=== PATIENT | male | born 1960 | race Hispanic/Latino ===

== ENCOUNTER 2017-04-26 07:00 | Day surgery (SDC) | payer BC ==
[~2017-04-26] VITALS: Ht 172.7 cm; Wt 90.3 kg
[~2017-04-26 07:00] MED LIST: ALLOPURINOL100 MG PO; ATENOLOL50 MG PO; CHLORTHALIDONE25 MG PO; CIALIS20 MG PO; COLCRYS0.6 MG PO; CRESTOR20 MG PO; MARTEN-TAB 3251 EACH PO; MELOXICAM15 MG PO; METFORMIN HCL500 MG PO; PROVENTIL HFA6.7 GM; TAMIFLU75 MG PO; TRILIPIX135 MG PO; VITAMIN D5000 UNIT PO; ZOLPIDEM TARTRA10 MG PO; ZOLPIDEM TARTRAT5 MG PO
--- NOTE | 2017-04-26 10:48 | NUR ---
04/26/17 1048 Tasha Collins REPORT FROM STAFF TECHNOLOGIST.
[2017-04-26] MEDS ORDERED: OXYCODON-ACETA1 EAC2 PO (11:01)
--- NOTE | 2017-04-26 11:34 | NUR ---
1120 - PT RETURNED FROM PACU. MAINTINAING OWN AIRWAY AND O2 STATS ABOVE 96% ON 2L NC. PHIL DRAIN DRAINING MINIMAL AMOUNT OF RED FLUID. PT COMPLAINTS OF 2/10 PAIN AND WOULD LIEK TO TAKE A PAIN PILL, ANIL PROVIDED. SEE MAR FOR MEDICATON GIVEN. FAMILY AT BEDSIDE. BEDRAILS UP, CALL LIGHT WITHIN REACH.
--- NOTE | 2017-04-26 11:41 | NUR ---
1140 - PT TOLERATING PO JELLO AND FLUIDS. PAIN MEDICATION GIVEN (SEE MAR). FAMILY AT BEDSIDE. HAND OFF REPORT GIVEN TO LINUS OCHOA.
--- NOTE | 2017-04-26 11:45 | NUR ---
1140 - room air trial attempted. pt on room air with this rn at bedside. pt drops to 90% when resting. 2L nc restarted. pulse ox left on. bed rails up, call light with in reach
--- NOTE | 2017-04-26 12:41 | NUR ---
DRAIN CARE EDUCATION DONE WITH PT AND . DEMONSTRATION DONE WITH HOW TO EMPTY PHIL DRAIN AND RECORD AMOUNTS. BOTH PT AND ASKED QUESTIONS AND VERBALIZED UNDERSTANDING.
--- NOTE | 2017-04-26 14:28 | NUR ---
PT RESTING IN BED, ALERT AND ORIENTED. SUPPORTED BY HIS . BOTH FRIENDLY, HAD QUESTIONS ABOUT MESH, ENCURAGED THEM TO ASK DR OR NURSE WHEN THEY WERE IN NEXT. PT REQUESTED PRAYER, GOOD VISIT. WILL FOLLOW NEEDED
--- NOTE | 2017-04-30 10:32 | OR ---
[facility] [address] [place], [place] [address] Signed DATE OF SERVICE: 04/26/2017 PREOPERATIVE DIAGNOSIS: Large right inguinal hernia (incarcerated). POSTOPERATIVE DIAGNOSES: Incarcerated right indirect inguinal hernia with incarcerated omentum. Separate scrotal (testicular) hydrocele. PROCEDURES: Right groin exploration with partial omentectomy. Repair of right inguinal hernia with implantation of Prolene mesh and high ligation and excision of right indirect sac. Scrotal hydrocelectomy with closure and bottle type configuration. SURGEON: Larry Monroy M.D. ANESTHESIA: General LMA (Larry Yanez CRNA) a nd local 20 mL of 0.25% Marcaine with epinephrine. INDICATION: This 56-year-old, man is noted to have a very sizable right inguinal hernia. He is referred by Kirsten Long from [place], [place] for further consideration of this. He has undergo ne colonoscopy by me in the past in 2016. The hernia has enlarged over time and is symptomatic to him. It is large enough that he is unable to cross his legs without a fair amount of pain. It appears nonreducible. Shows no evidence of bowel obstruction de spite its large size. It clearly extends to the right hemiscrotum. The testicle was not easy to examine on the basis of this hernia. He is admitted to undergo repair. Understand the risks of bleeding, infection, recurrence, testicular injury, vascular comp romise, and other unforeseen complications. FINDINGS: This was a very bulky hernia and not easily reducible. Ultimately, he was found to have huge amount of omentum within the right hemiscrotum. Reduction of much of the omentum was accomplished, but a sizabl e amount simply could not be reduced and had to be excised. It was not ischemic in any way. Indirect hernia sac was well demonstrated, ultimately ligated and excised. The floor was somewhat attenuated, but not excessively so. Implantation of Prolene mesh in the properitoneal space was undertaken with good effect. There appeared to be a separate hydrocele of the right testicle, which was excised and secured posteriorly in a bottle type closure. This appeared to be separate and distinct from the hernia itself. Electronically Signed By: LARRY MONROY MD 04/30/17 1032 PATIENT NAME: RUBI WATERS OPERATIVE REPORT DATE OF : 56 PHYSICIAN: LARRY MONROY MD REPORT #: [id number] REPORT IS CONFIDENTIAL AND NOT TO BE RELEASED WITHOUT AUTHORIZATION [facility] [address] [place] [id number] Signed DESCRIPTION OF PROCEDURE: The patient was brought to the operating room, given a general LMA-type anesthetic. Preoperative antibiotics were given. Sequential compression device stockings used and heparin subcutaneously administered. The abdomen was clipped and prepared with a chlorhexidine solution. Impressively, large and amorphous right groin and scrotum was noted. A transverse incision was made cephalad to the pubic tubercle and dissection was carried through the subcutaneous tissue with blunt and el e ctrocautery dissection. The external oblique was identified and incised along its fibers revealing the bulky hernia still. The bulky hernia along the cord could not be distinguished and therefore, with blunt dissection, a Alva drain was placed around t h e bulky cord, which was about the size of my clenched fist. Using electrocautery, the cremasteric muscle fibers were incised transversely. Ilioinguinal nerve branch was dissected free from this area and reflected around the external oblique and protected from harm. Ultimately, the hernia sac could be identified and using blunt dissection, it was away from the cord structures, which were located posteriorly. The hernia sac was entered and the fatty tissue was noted. Further dissection showed it to be omentum. The omentum was then withdrawn out of the scrotum. A huge amount of omentum had herniated into the area. The hernia was about the size of a 12-inch pizza, but thicker. This allowed for good delineation of the hernia sac in relation to the cord. The hernia sac was dissected free and the cord structures preserved. Attempts to replace the omentum into the peritoneal cavity were met with failure, much of it could be reduced, but half of it could not be. Relaxation by the brand ambassador and so forth a nd other measures simply could not allow for reduction of all of the omentum. On that basis, this portion needed to be excised. Sequential application of hemostats was undertaken and the vascular pedicle secured with 2-0 Vicryl ties. At this point, the om entum could be returned to the peritoneal cavity. Further dissection of the hernia sac was accomplished it from the cord structures. Using a 2-0 silk suture, doubly applied, the neck of the hernia sac was secured and the redundant hernia sac amputated and passed for pathology. Withdrawal of the testicle into the field was undertaken during the course of the hernia sac from the cord structures. There appeared to be a separate hydrocele of the testicle, which was dissected free and redundant hydrocele excised and secured posteriorly to the testicle in the standard way in a "bottle-type" closure using 2-0 Vicryl. The adventitial attachments to the testicle itself allowed for replacement of the testicle to the hemiscrotum without elaborate pexing of the testicle and there is little chance of torsion under the circumstances. With the hernia now reduced and the hydrocele excised, the cord structures now in a more normal configuration. Attention was turned towards hernia repair. An Allis clamp was applied to the tendon of the transversus abdominis. The attenuated fibers of the fascia Electronically Signed By: LARRY MONROY MD 04/30/17 1032 PATIENT NAME: RUBI WATERS OPERATIVE REPORT DATE OF : 56 PHYSICIAN: LARRY MONROY MD REPORT #: [id number] REPORT IS CONFIDENTIAL AND NOT TO BE RELEASED WITHOUT AUTHORIZATION [facility] [address] [place], [place] [address] Signed transversalis in the floor were incised with electrocautery. The properitoneal fat was bluntly separared. The segment of Prolene mesh was cut to the appropriate configuration and secured in an underlay technique with interrupted 2-0 Prolene suture. This included the shelving edge of Poupart ligament laterally and the tendon of the transversus abdominis med i ally. An underlay technique was maintained. The tails of the graft were secured lateral to the cord without problem and without encumbrance to the regional nerves including the ileal inguinal nerve. The cord and the nerve were replaced in the inguinal can a l. 20 mL of 0.25% Marcaine with epinephrine was injected locally. The external oblique was reapproximated over the cord with running 2-0 Vicryl. Marcella's layer was reapproximated with interrupted 2-0 Vicryl and skin closed with running subcuticular 3-0 Vicryl. Steri-Strips were applied as was a Mepilex, silver sponge dressing after placing a 7 mm flat Varghese drain beneath the external oblique extending down the cord and into the right hemiscrotum. Steri-Strips were applied as was a Mepilex silver sponge dressing as mentioned. As there appeared to be a small amount of leakage of urine, I placed a decompressing 15-Wolof red rubber catheter under sterile technique, draining 400 mL of clear yellow urine. The patient was ultimately extubated and transferred to recovery in good condition having suffered no complication. Sponge, needle, and instrument counts reported as correct x3. MD ANTONIO Reardon/Sujathal /[id number] cc: MAMI Cruz Electronically Signed By: LARRY MONROY MD 04/30/17 1032 PATIENT NAME: HANSA CHAUHANRUBI OPERATIVE REPORT DATE OF : 56 PHYSICIAN: LARRY MONROY MD REPORT #: [id number] REPORT IS CONFIDENTIAL AND NOT TO BE RELEASED WITHOUT AUTHORIZATION
== END 2017-04-26 14:25 | disposition home or self-care (01) ==
LOC: DS 07:00
PROVIDERS: Surgery
PROC: 0YU50JZ Supplement Right Inguinal Region with Synthetic Substitute, Open Approach (ICD-10-PCS; 2017-04-26)
PROC: 0DBS0ZZ (ICD-10-PCS; 2017-04-26)
PROC: 0YU50JZ Supplement Right Inguinal Region with Synthetic Substitute, Open Approach (ICD-10-PCS; principal; 2017-04-26 08:45)
DX: K40.30 Unilateral inguinal hernia, with obstruction, without gangrene, not specified as recurrent (principal); N43.2 Other hydrocele; E11.9 Type 2 diabetes mellitus without complications; I10 Essential (primary) hypertension; E78.5 Hyperlipidemia, unspecified; M19.90 Unspecified osteoarthritis, unspecified site; M10.9 Gout, unspecified; Z98.890 Other specified postprocedural states
CPT/HCPCS: 00830; 71020; C1781; J0690; J1100; J1644; J1885; J2250; J2405; J2704; J2765; J3010; J7120

== ENCOUNTER 2018-12-13 08:19 | Observation (INO) | payer BC ==
[~2018-12-13] VITALS: Ht 172.7 cm; Wt 84.9 kg
--- OUTSIDE RECORDS SUMMARY | ~2018-12-13 | XMS | Clinical Summary ---
Demographics + + + | Address | [address] | | | [place] [address] | + + + | Home Phone | | + + + | Preferred Language | Unknown | + + + | Marital Status | | + + + | Shinto Affiliation | 1041 | + + + | Race | Unknown | + + + | Ethnic Group | Unknown | + + + Author + + + | Author | [facility] | | | and [place] | + + + | Organization | [facility] | | | and [place] | + + + | Address | Unknown | + + + | Phone | Unavailable | + + + Support + + +---------+ + | Name | Relationship | Address | Phone | + + +---------+ + | DELFIN SANTO | ECON | Unknown | | + + +---------+ + Care Team Providers + +------+ + | Care Towing Pilot Name | Role | Phone | + +------+ + PP | Unavailable | + +------+ + Allergies Not on File Current Medications Not on file Active Problems Not on file Social History + +-------+ +--------+------+ | Tobacco Use | Types | Packs/Day | Years | Date | | | | | Used | | + +-------+ +--------+------+ | Never Assessed | | | | | + +-------+ +--------+------+ + + + | Sex Assigned at | Date Recorded | | | | + + + | Not on file | | + + + Plan of Treatment + + + + + | Health Maintenance | Due Date | Last Done | Comments | + + + + + | Vaccine: | | | | | Dtap/Tdap/Td (1 - | 8 | | | | Tdap) | | | | + + + + + | Vaccine: Zoster (1 | | | | | of 2) | 9 | | | + + + + + | Vaccine: Influenza | | | | | (#1) | 8 | | | + + + + + Results Not on filefrom Last 3 Months"
--- OUTSIDE RECORDS SUMMARY | ~2018-12-13 | XMS | Clinical Summary ---
Demographics + + + | Address | [address] | | | [place] [address] | + + + | Home Phone | | + + + | Preferred Language | Unknown | + + + | Marital Status | | + + + | Tenriism Affiliation | 1041 | + + + | Race | Unknown | + + + | Ethnic Group | Unknown | + + + Author + + + | Author | [facility] | + + + | Organization | [facility] | + + + | Address | Unknown | + + + | Phone | Unavailable | + + + Support + + + + + | Name | Relationship | Address | Phone | + + + + + | Mikaela Law | ECON | [address] | | | | | [place] | | | | | [address] | | + + + + + Care Team Providers + +------+ + | [employer] Refrigerated Truck Driver Name | Role | Phone | + +------+ + | Makeda Avila MD | PP | | + +------+ + Allergies No Known Allergies Current Medications + + +-------+---------+------+------+-------+ | Prescription | Sig. | Disp. | Refills | Star | End | Statu | | | | | | t | Date | s | | | | | | Date | | | + + +-------+---------+------+------+-------+ | atenolol | Take 50 mg by mouth | | | | | Activ | | (TENORMIN) 50 MG | daily. | | | | | e | | tablet | | | | | | | + + +-------+---------+------+------+-------+ | chlorthalidone | Take 25 mg by mouth | | | | | Activ | | (HYGROTEN) 25 MG | daily. | | | | | e | | tablet | | | | | | | + + +-------+---------+------+------+-------+ | tadalafil (CIALIS) | Take 20 mg by mouth | | | | | Activ | | 20 MG tablet | as needed. | | | | | e | + + +-------+---------+------+------+-------+ | metFORMIN | Take 500 mg by mouth | | | | | Activ | | (GLUCOPHAGE) 500 MG | nightly. | | | | | e | | tablet | | | | | | | + + +-------+---------+------+------+-------+ | Choline | Take 135 mg by mouth | | | | | Activ | | Fenofibrate 135 MG | daily. | | | | | e | | capsule | | | | | | | + + +-------+---------+------+------+-------+ | | Take 50-325 mg by | | | | | Activ | | ACETAMINOPHEN-BUTALB | mouth as needed. | | | | | e | | ITAL 50-325 MG TABS | | | | | | | + + +-------+---------+------+------+-------+ | allopurinol | Take 300 mg by mouth | | | | | Activ | | (ZYLOPRIM) 300 MG | daily. | | | | | e | | tablet | | | | | | | + + +-------+---------+------+------+-------+ | rosuvastatin | Take 20 mg by mouth | | | | | Activ | | (CRESTOR) 20 MG | nightly. | | | | | e | | tablet | | | | | | | + + +-------+---------+------+------+-------+ | aspirin 81 MG EC | Take 81 mg by mouth | | | | | Activ | | tablet | daily with | | | | | e | | | breakfast. | | | | | | + + +-------+---------+------+------+-------+ Active Problems + + + | Problem | Noted Date | + + + | CAD (coronary artery disease) | 01/23/2014 | + + + + + | Last Assessment & Plan: 3V-CAD, LVEF 60%. 53yo WM, doing | | well, remains active, denies any angina, shortness of breath, | | palpitations, or lightheadedness. He does have occasional chest | | discomfort that is lateral on the chest, on with certain | | movements, not with walking, musculoskeletal in nature. Since | | last seen, 2 years ago, no surgical procedures or | | hospitalizations. Labs reviewed with the patient. Tolerating | | medications. No changes in therapy. However would recommend | | changing the Cialis to Viagra or Levitra, as is her relatively | | shorter acting medications, in the event he needs nitroglycerin | | it would be available him sooner.Hx CABG: noHx PCI/stent: | | 07/14/2006, LCx (2.5*16mm Taxus CRIS).Pacemaker/ICD: noLast Cath, | | 07/14/2006: LVEF 60%. Left main 30% lesion, mid-LAD 30% lesion, | | RCA anomolous take-off (AL-1) OK, although distal PDA occluded, | | mid-LCx receives a 2.5*16mm Taxus CRIS (Cardiolite Stress, | | 06/08/2006: some degree of inferior ischemia, LVEF 69%).Last Echo: | | naLast stress test, 11/29/2011: 9:26min Collin, no chest pain, | | ischemia, or arrhythmias detected. | + + + + + | Hypertension | 01/23/2014 | + + + + + | Last Assessment & Plan: Hypertension, controlled, continue | | current meds. | + + + + + | Hyperlipidemia | 01/23/2014 | + + + + + | Last Assessment & Plan: Hyperlipidemia, at goal, continue | | current meds. | + + + + + | Diabetes mellitus, type 2 | 01/23/2014 | + + + + + | Last Assessment & Plan: DM II, managed by PCP. | + + Family History + + +------+ + | Medical History | Relation | Name | Comments | + + +------+ + | Diabetes type II | Father | | | + + +------+ + | Heart disease | Father | | | + + +------+ + | Hypertension | Father | | | + + +------+ + | Diabetes type II | Mother | | | + + +------+ + | High cholesterol | Mother | | | + + +------+ + | Hypertension | Mother | | | + + +------+ + + +------+ + + | Relation | Name | Status | Comments | + +------+ + + | Father | | | heart disease,DMII,HTN | | | | (Age | | | | | 65) | | + +------+ + + | Mother | | Alive | 78 yrs., DMII,HTN,Hyperlipidemia | + +------+ + + Social History + +-------+ +--------+------+ | Tobacco Use | Types | Packs/Day | Years | Date | | | | | Used | | + +-------+ +--------+------+ | Never Smoker | | | | | + +-------+ +--------+------+ + +---+---+---+ | Smokeless Tobacco: | | | | | Never Used | | | | + +---+---+---+ + + +---------+ + | Alcohol Use | Drinks/We | oz/Week | Comments | | | ek | | | + + +---------+ + | Yes | 0 | 0.0 | one beer every 6 months | | | Standard | | | | | drinks or | | | | | | | | | | equivalen | | | | | t | | | + + +---------+ + + + + | Sex Assigned at | Date Recorded | | | | + + + | Not on file | | + + + Last Filed Vital Signs + + + + | Vital Sign | Reading | Time Taken | + + + + | Blood Pressure | 138/76 | 01/23/2014 10:39 AM PDT | + + + + | Pulse | 58 | 01/23/2014 10:39 AM PDT | + + + + | Temperature | - | - | + + + + | Respiratory Rate | 17 | 01/23/2014 10:39 AM PDT | + + + + | Oxygen Saturation | - | - | + + + + | Inhaled Oxygen | - | - | | Concentration | | | + + + + | Weight | 86.3 kg (190 lb 3.2 | 01/23/2014 10:39 AM PDT | | | oz) | | + + + + | Height | 167.6 cm (5' 6") | 01/23/2014 10:39 AM PDT | + + + + | Body Mass Index | 30.7 | 01/23/2014 10:39 AM PDT | + + + + Plan of Treatment + [...] + Results Not on filefrom Last 3 Months Insurance +---------+--------+ +------+-------+ + | Payer | Benefi | Subscriber | Type | Phone | Address | | | t Plan | ID | | | | | | / | | | | | | | Group | | | | | +---------+--------+ +------+-------+ + | PREMERA | PREMER | [id number] | | | [address] [address] | | | A BLUE | [address] | | | [place], [place] | | | CARD | | | | [phone] | +---------+--------+ +------+-------+ + + +--------+ +--------+ + + | Guarantor Name | Accoun | Relation to | Date | Phone | Billing Address | | | t Type | Patient | of | | | | | | | | | | + +--------+ +--------+ + + | TRAVIS LAW | Person | Self [birth year] Work: | [address] | | | marian/Dar | | 1960 | [phone] | [place] | | | malia | | | [address]: | [phone] | | | | | | | | | | | | | [phone] | | | | | | | [phone] | | + +--------+ +--------+ + +
[~2018-12-13 08:19] MED LIST changes: +IBUPROFEN600 MG PO; +MAPAP325 MG PO; +OXYCODON-ACETA1 EAC2 PO
--- NOTE | 2018-12-13 08:35 | NUR ---
pt ARRIVED ON FLOOR WITH . ACCOMPANIED TO ROOM. pt CHANGED INTO GOWN. DR. MONROY IN ROOM. IV STARTED BY ISHMAEL ULLOA, BLOOD DRAWN AND SENT TO LAB. VSS. NPO AT THIS TIME, EDUCATION DONE. IVF RUNNING, MEDICATION GIVEN (SEE MAR). pt REPORTED PAIN OF 5/10, STATED "IT'S OKAY RIGHT NOW". ASSESSMENT DONE. NO REQUESTS AT THIS TIME. CALL LIGHT WITHIN REACH.
--- NOTE | 2018-12-13 10:42 | NUR ---
CHECKED ON PATIENT, HE IS DOING WELL JUST WORRIED ABOUT HIS PROCEDURE. HE WALKED TO THE BATHROOM WITH NO ISSUES. ONE UNMEASURED VOID. BACK TO BED AND CALL LIGHT IN PLACE.
--- NOTE | 2018-12-13 11:10 | NUR ---
pt WIPED DOWN FOR SURGERY. LR ON STRAIGHT TUBING. ABX PULLED FOR OR.
--- NOTE | 2018-12-13 11:25 | NUR ---
ARTEMIO GOMEZ FROM [place] ARRIVED TO TRANSPORT pt TO SURGERY.
[2018-12-13] MEDS ORDERED: OXYCODON-ACETA1 EAC2 PO (13:17)
[2018-12-13] MEDS ORDERED: TYLENOL325 MG PO (13:18)
--- NOTE | 2018-12-13 13:20 | NUR ---
12/13/18 1320 Kristi Roth 1259 PT ARRIVED IN PACU SLEEPY WITH NO C/O'S. 1310 OXYGEN DECREASED TO 10L VIA MASK WITH SATS 100%.
[2018-12-13] MEDS ORDERED: BACTRIM DS TAB1 EACH PO (13:51)
--- NOTE | 2018-12-13 15:10 | NUR ---
PT UP TO RESTROOM. ABLE TO AMBULATE WITH SBA. EATING JELLO, NO REPORTED NAUSEA. 10ML RED DRAINAGE FROM PHIL DRAIN. PT AND INSTRUCTED ON EMPTYING AND SUCTIONING, STRIPPING DRAIN. VS STABLE. ON RA.
--- NOTE | 2018-12-13 16:13 | NUR ---
PATIENT USED THE RESTROOM. HE ONLY NEEDED [id number]. HE WAS ABLE TO WALK ON HIS OWN INTO THE BATHROOM. ALSO BACK FROM THE BATHROM.
--- NOTE | 2018-12-13 16:14 | NUR ---
RESTING IN BED, STATES NO PAIN CURRENTLY.
--- NOTE | 2018-12-13 17:26 | NUR ---
PT MET ALL CRITERIA. ATE A TURKEY SANDWICH AND DRANK A CUP OF WATER WO NAUSEA. AMBULATES TO RESTROOM SBA. EMPTIED OWN PHIL DRAIN FOR ANOTHER 10ML RED DRAINAGE. GIVEN GRAPH TO CHART IT. VS STABLE ON RA. DRESSED BY SELF. DISCHARGE INSTRUCTIONS GIVEN INCLUDING MEDS BY [place] IN PHARM. FAMILY HERE TO TAKE HOME AND ALSO INSTRUCTED ON PHIL DRAIN, SHOWERING, LIFTING ETC. WHEELED OUT TO CAR.
--- NOTE | 2018-12-14 09:24 | OR ---
[facility] [address], [place] [address] Signed DATE OF OPERATION: 12/13/2018 SURGEON: Larry Monroy MD PREOPERATIVE DIAGNOSES: 1. Right scrotal hematoma (ecchymosis and swelling). 2. History of recurrent hydrocelectomy, yesterday, December 12, 2018. POSTOPERATIVE DIAGNOSIS: Right hemiscrotum clot 150 mL with secondary edema and ecchymosis. PROCEDURES PERFORMED: 1. Exploration of right hemiscrotum wound. 2. Evacuation of hematoma 150 mL. 3. Irrigation and placement of drain (closed suction drain). ANESTHESIA: General laryngeal mask airway; John Guillen CRNA; and local 10 mL of 0.25% Marcaine with epinephrine. INDICATION: This 58-year-old man underwent repair of recurrent right hydrocele by me yesterday. The operation went without problem. Although it was a very large hydrocele, there was no untoward bleeding. A passive quarter-inch [place] drain was placed through the scrotal incision were fluff gauze and an athletic supporter. He called last night with complaints of some swelling, for which he was advised to do cold packs and scrotal elevation. By this morning, the swelling increased quite markedly. He was directly admitted to the hospital, where he was noted to have an ecchymotic scrotum which was tense and distended and highly suggestive of a right hemiscrotal hematoma. He has been fluid resuscitated, given intravenous antibiotics, and he is to go undergo exploration of the scrotum with evacuation hematoma at present. He understands as does his with the risks of bleeding, infection, need for other indicated procedures, and so on. FINDINGS: There was no sign of ongoing bleeding. The clot within the hemiscrotum was distributed throughout the operative cavity. It was dark blood and about 150 mL in aggregate amount. There was no sign of discrete bleeding site; however, the cremasteric muscle fiber area proximally did have a small amount of fresh blood and may have been the Electronically Signed By: LARRY MONROY MD 12/14/18 0924 PATIENT NAME: RUBI WATERS OPERATIVE REPORT DATE OF : 56 REPORT #: [id number] PHYSICIAN: LARRY MONROY MD PCP: ALMA CAMACHO REPORT IS CONFIDENTIAL AND NOT TO BE RELEASED WITHOUT AUTHORIZATION [facility] [address], [place] [address] Signed source of the problem. Cautery was used for hemostasis. Once completely irrigated and free of clot and with no sign of ongoing bleeding, Carlos hemostatic agent was applied to the area, and through a separate stab incision in the right groin, a 7 mm flat Varghese drain was placed. DESCRIPTION OF PROCEDURE: The patient was brought to the operating room and given a general anesthetic by LMA technique. Preoperative antibiotic Ancef was given. Sequential compression device stockings used. Photographs were taken. The groin and scrotal area were prepared with a chlorhexidine solution and draped sterilely. The suture securing the quarter-inch [place] was divided and the [place] drain removed. The incision was opened dividing the Vicryl sutures closing and photographs taken. Digital examination of the wound showed soft clot within the confines of the right hemiscrotum. The wound was opened more fully for evacuation of clot with ring forceps and pickups and so forth. It was milked out as well. There was no sign of fresh blood or active bleeding. The clot was removed rather extensively and ultimately 150 mL of clot had been explanted. Irrigation was undertaken with saline and subsequently plain water showing no sign of ongoing active bleeding. There was some bright blood noted in the region of the divided cremasteric muscle fibers more proximally. Cautery was secured to these areas. Medially, there was redundant soft tissue which was taken out, but again no sign of active bleeding. Careful inspection of the suture line on the hydrocele showed no sign of bleeding there either. Once satisfied all of the clot was removed and irrigation complete, a stab incision was made in the right groin. A 7 mm flat Varghese drain was directed into the right hemiscrotum and the drain was secured to the skin with a nylon suture. Carlos was applied to the depths of the wound. The dartos layer was secured with interrupted 3-0 Vicryl and the skin was closed with interrupted 2-0 Vicryl in deep dermal layer. A Mepilex silver sponge dressing was applied as was an op-site fluff gauze was applied and a new athletic supporter was provided. The patient was ultimately extubated and transferred to recovery room in good condition having suffered no complication. Sponge, needle, and instrument count was reported as correct x3. MD ANTONIO Reardon/JORDANA /[id number] Electronically Signed By: LARRY MONROY MD 12/14/18 0924 PATIENT NAME: RUBI WATERS OPERATIVE REPORT DATE OF : 56 REPORT #: [id number] PHYSICIAN: LARRY MONROY MD PCP: ALMA CAMACHO REPORT IS CONFIDENTIAL AND NOT TO BE RELEASED WITHOUT AUTHORIZATION [address] [address] Signed cc: MAMI Lugo Copies: ALMA CAMACHO ~ Electronically Signed By: LARRY MONROY MD 12/14/18 0924 PATIENT NAME: RUBI WATERS OPERATIVE REPORT DATE OF : 56 REPORT #: [id number] PHYSICIAN: LARRY MONROY MD PCP: ALMA CAMACHO REPORT IS CONFIDENTIAL AND NOT TO BE RELEASED WITHOUT AUTHORIZATION
--- NOTE | 2018-12-14 09:24 | HP ---
[facility] [address], [place] [address] Signed ADMISSION DATE: 12/13/2018 REASON FOR ADMISSION: Significant right scrotal edema, possible hematoma. HISTORY: This 58-year-old man is a patient of MAMI Cruz, and underwent right recurrent hydrocele excision by me yesterday through transscrotal route. He really had not too much bleeding associated with this and a Alva drain was placed as well. At home last night, he called noting that he had increased swelling. He was advised to do scrotal elevation and a cold pack. He presented to my office this morning where he had increased size of his right hemiscrotum and he was directly admitted for further evaluation to possibly include scrotal hematoma evacuation. PAST MEDICAL HISTORY: Includes hypertension. He does have [id number] diabetes mellitus. ALLERGIES: He has no known drug allergies. SOCIAL HISTORY: He is . He works in food processing. He is accompanied by his . REVIEW OF SYSTEMS: He denies any shortness of breath or chest pain. He has had no dysphagia or dysuria, has no urinary retention symptoms. His pain is not too much as regards the scrotum. PHYSICAL EXAMINATION: GENERAL: Pleasant man, who looks to be in no severe distress. Trachea is midline. CHEST: Clear. HEART: Regular without murmur. ABDOMEN: Soft and nondistended. Examination of scrotum shows ecchymosis of both left and right hemiscrotum and significant edema and swelling. He does not appear to have any active bleeding from the drain site where a 0.25-inch Alva drain is noted. There is no sign of cellulitis or infection. ASSESSMENT: The patient has a fair amount of edema and I suspect some amount of hematoma, but Electronically Signed By: LARRY MONROY MD 12/14/18 0924 PATIENT NAME: RUBI WATERS HISTORY AND PHYSICAL DATE OF : 56 REPORT #: [id number] PHYSICIAN: LARRY MONROY MD PCP: ALMA CAMACHO REPORT IS CONFIDENTIAL AND NOT TO BE RELEASED WITHOUT AUTHORIZATION [facility] [address], [place] [address] Signed possibly not too much. I explained to the patient and his the inflammatory nature of even a small amount of blood and the capacity of the scrotum to swell quite impressively. Nevertheless, the if there is hematoma within the operative site, it would be advisable to do irrigation and evacuation of the hematoma. I suspect that much hematoma would be removed, but it is possible. There is no real need for imaging in this situation as exploration would be undertaken either way. For now, we will check his CBC and electrolytes. He is not known to have a coagulopathy of any sort and takes no anticoagulants, though he was on Motrin as a postoperative pain medication and likely got Toradol by the benefits counselor intraoperatively. We will review that as well. We will plan for a wound exploration, evacuation of hematoma, irrigation and drain later. MD ANTONIO Reardon/JORDANA /[id number] Copies: ~ Electronically Signed By: LARRY MONROY MD 12/14/18 0924 PATIENT NAME: RUBI WATERS HISTORY AND PHYSICAL DATE OF : 56 REPORT #: [id number] PHYSICIAN: LARRY MONROY MD PCP: ALMA CAMACHO REPORT IS CONFIDENTIAL AND NOT TO BE RELEASED WITHOUT AUTHORIZATION
== END 2018-12-13 17:15 | disposition home or self-care (01) ==
LOC: MS 08:19
PROVIDERS: ADMIT Surgery
PROC: 0V950ZZ Drainage of Scrotum, Open Approach (ICD-10-PCS; principal; 2018-12-13 12:00)
DX: N99.840 Postprocedural hematoma of a genitourinary system organ or structure following a genitourinary system procedure (principal); E11.9 Type 2 diabetes mellitus without complications; I10 Essential (primary) hypertension; M10.9 Gout, unspecified; E78.5 Hyperlipidemia, unspecified; K21.9 Gastro-esophageal reflux disease without esophagitis; M19.90 Unspecified osteoarthritis, unspecified site; J68.3 Other acute and subacute respiratory conditions due to chemicals, gases, fumes and vapors; Z79.84 Long term (current) use of oral hypoglycemic drugs; Z79.1 Long term (current) use of non-steroidal anti-inflammatories (NSAID); Z79.51 Long term (current) use of inhaled steroids; Z79.899 Other long term (current) drug therapy
CPT/HCPCS: 00920; 80048; 85025; G0378; J0690; J1100; J2250; J2405; J2704; J3010; J7120